=== PATIENT | male | born 2005 | race Caucasian/White ===

== ENCOUNTER 2024-09-22 02:00 | Emergency (ER) | payer SELFPAY ==
[~2024-09-22] VITALS: Ht 188 cm; Wt 68.2 kg
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
[2024-09-22 02:26] VITALS: BP 124/53; PULSE 79; RESP 20; TEMP 98.6; O2SAT 100
[2024-09-22 03:57] LABS: MEAN PLATELET VOLUME 9.2 FL (7.4-10.4); RED CELL DISTRIBUTION WIDTH 14.0 % (11.5-14.5)
--- NOTE | 2024-09-23 06:06 | ELECTROCARDIOGRAPH REPORT ---
[facility] Test Date: 2024-09-22 Test Time: 02:05:00 Pat Name: EVER SPRINGER Department: EMERGENCY ROOM Room: Gender: M Director Of Maintenance: JANAE : 2005 Requested By: DEPARTMENT EMERGENCY Order Number: [id number] Reading MD: Dr. Sushant Zamorano Measurements Intervals [place] Rate: 95 P: 80 MD: 153 QRS: 86 QRSD: 84 T: 79 QT: 342 QTc: 430 Interpretive Statements Sinus rhythm Electronically Signed On 09-23-2024 6:16:[address] Sushant Zamorano Please click the below link to view image of tracing.
== END 2024-09-22 02:31 | disposition hospice, inpatient (51) ==
LOC: ER 02:01
DX: S00.81XA Abrasion of other part of head, initial encounter (principal); F10.129 Alcohol abuse with intoxication, unspecified; R00.0 Tachycardia, unspecified; Y90.9 Presence of alcohol in blood, level not specified; X58.XXXA Exposure to other specified factors, initial encounter; Y93.89 Activity, other specified; Y92.89 Other specified places as the place of occurrence of the external cause; Y99.8 Other external cause status
CPT/HCPCS: 36415; 82948; 85025; 93005; 99284